=== PATIENT | female | born 1955 | race Caucasian/White ===

== ENCOUNTER → 2018-05-29 11:07 | Outpatient (CLI) | payer OTHER, SELFPAY ==
--- NOTE | 2018-05-29 | DI.MG.S_ITS ---
BILATERAL DIGITAL SCREENING MAMMOGRAM 3D/2D WITH CAD: 05/29/2018 CLINICAL: Routine screening. Comparison is made to exams dated: 03/13/2007 mammogram, 12/30/2005 mammogram, and 12/17/2005 mammogram - [facility]. There are scattered fibroglandular elements in both breasts. Current study was also evaluated with a Computer Aided Detection (CAD) system. No significant masses, calcifications, or other findings are seen in either breast. There has been no significant interval change. IMPRESSION: NEGATIVE There is no mammographic evidence of malignancy. A 1 year screening mammogram is recommended. This exam was interpreted at Station ID: [id number]. NOTE: For mammograms, a report in lay terms will be sent to the patient. Approximately 15% of breast malignancies will not be visualized mammographically. In the management of a palpable breast mass, a negative mammogram must not discourage biopsy of a clinically suspicious lesion. Electronically Signed By: Nanette perrin/antonella:05/29/2018 13:01:43 letter sent: Normal Exam ACR BI-RADS Category 1: Negative [id number]
== END ==
PROVIDERS: PCP Family Medicine; Visit Provider Family Medicine
DX: Z12.31 Encounter for screening mammogram for malignant neoplasm of breast (principal)
CPT/HCPCS: 77063; 77067

== ENCOUNTER → 2020-05-30 14:07 | Outpatient (CLI) | payer MEDICARE, SELFPAY | PROVIDERS: Referring Provider Student in an Organized Health Care Education/Training Program; Visit Provider Student in an Organized Health Care Education/Training Program | DX: M81.0 Age-related osteoporosis without current pathological fracture (principal); Z78.0 Asymptomatic menopausal state; Z87.891 Personal history of nicotine dependence | CPT/HCPCS: 77080 ==

== ENCOUNTER → 2020-09-14 11:19 | Outpatient (CLI) | payer MEDICARE, SELFPAY ==
[2020-09-14 11:58] LABS: COVID19 -Nasal RAPID Negative (Negative)
== END ==
PROVIDERS: PCP Student in an Organized Health Care Education/Training Program; Referring Provider Internal Medicine; Visit Provider Internal Medicine
DX: Z20.822 Contact with and (suspected) exposure to COVID-19 (principal)
CPT/HCPCS: 87635; C9803

== ENCOUNTER → 2020-09-15 14:44 | Outpatient (CLI) | payer MEDICARE, SELFPAY ==
--- NOTE | 2020-09-20 10:20 | PM.PFT.1 ---
Pulmonary Function Test Referral & Results Date Patient Seen: 09/15/20 Requesting provider: Xochitl Maynard Results: The spirometry demonstrates an FVC of 2.08 L which is 72% of predicted. The FEV1 was measured at 0.67 L which is 30% of predicted. The FEV1/FVC ratio was 32 which is 41% of predicted. Following the administration of bronchodilator there was no appreciable change. Lung volumes show an SVC of 2.18 L which is 80% of predicted. The diffusing capacity was measured at 10.37 which is 48% of predicted. No hemoglobin value was provided, so no correction for potential anemia could be made, if appropriate. The maximum voluntary ventilation was reduced Interpretation: This study demonstrates severe obstructive lung disease with an FEV1 of less than 1 L at 670 mL. There is only minimal evidence of benefit following bronchodilator that does not reach the level of significance usually required to demonstrate improvement There is also moderately severe disease at the capillary alveolar level as demonstrated by the reduction in diffusing capacity
== END ==
PROVIDERS: PCP Student in an Organized Health Care Education/Training Program; Referring Provider Student in an Organized Health Care Education/Training Program; Visit Provider Student in an Organized Health Care Education/Training Program
DX: J44.9 Chronic obstructive pulmonary disease, unspecified (principal)
CPT/HCPCS: 94060; 94726; 94729

== ENCOUNTER → 2020-10-12 12:14 | Outpatient (CLI) | payer MEDICARE, SELFPAY ==
[2020-10-12] MEDS: COVID-19 VACC #1, MRNA(MOD) 100 MCG/0.5 ML VIAL IM (12:25)
== END ==
PROVIDERS: PCP Student in an Organized Health Care Education/Training Program; Visit Provider Internal Medicine
DX: Z23 Encounter for immunization (principal)
CPT/HCPCS: 0011A; 91301

== ENCOUNTER → 2020-11-09 12:06 | Outpatient (CLI) | payer MEDICARE, SELFPAY ==
[2020-11-09] MEDS: COVID-19 VACC #2, MRNA(MOD) 100 MCG/0.5 ML VIAL IM (12:15)
== END ==
PROVIDERS: PCP Student in an Organized Health Care Education/Training Program; Visit Provider Internal Medicine
DX: Z23 Encounter for immunization (principal)
CPT/HCPCS: 0012A; 91301

== ENCOUNTER → 2021-04-30 11:39 | Outpatient (CLI) | payer MEDICARE, SELFPAY | PROVIDERS: PCP Student in an Organized Health Care Education/Training Program; Referring Provider Student in an Organized Health Care Education/Training Program; Visit Provider Student in an Organized Health Care Education/Training Program | DX: M81.0 Age-related osteoporosis without current pathological fracture (principal); Z78.0 Asymptomatic menopausal state; Z87.891 Personal history of nicotine dependence | CPT/HCPCS: 77080 ==

== ENCOUNTER 2021-08-03 12:02 | Inpatient (IN) | payer MEDICARE, SELFPAY ==
[2021-08-03] VITALS (22 sets, daily range): BP systolic 139–190; BP diastolic 59–91; PULSE 82–123; RESP 11–49; TEMP 36.1–36.6; O2SAT 81–99; BMI 21.5
--- NOTE | 2021-08-03 12:10 | DI.RAD.S_ITS ---
PROCEDURE: XR CHEST 1V INDICATIONS: chest pain TECHNIQUE: One view of the chest was acquired. COMPARISON: None. FINDINGS: Surgical changes and devices: None. Lungs and pleura: Lungs are clear. No pleural effusions or pneumothorax. Mediastinum: Mediastinal contours appear normal. Heart size is normal. Bones and chest wall: No suspicious bony lesions. Overlying soft tissues appear unremarkable. IMPRESSION: No acute cardiopulmonary disease process. Dictated by: Zakia Salter MD, PhD on 08/03/2021 at 12:33 Approved by: Zakia Salter MD, PhD on 08/03/2021 at 12:33
[2021-08-03 12:29] LABS: Add Manual Diff / Slide Review NO; Basophils Absolute Auto 100 /uL (0-100); Basophils Percent Auto 0.7 % (0-2); Eosinophils Absolute Auto 0 /uL (0-450); Eosinophils Percent Auto 0.4 % (2-4); Hemoglobin 12.9 g/dL (12.0-16.0); Lymphocytes Absolute Auto 1300 /uL (1100-4500); Lymphocytes Percent Auto 16.8 % (25-40); Mean Corpuscular HGB Conc 34.1 % (30-36); Mean Corpuscular Hemoglobin 30.5 PG (26-34); Mean Corpuscular Volume 89.6 fL (80-100); Monocytes Absolute Auto 600 /uL (0-900); Monocytes Percent Auto 7.6 % (3-14); Neutrophils Absolute Auto 5600 /uL (1500-7000); Neutrophils Percent Auto 74.5 % (50-75); Platelet Count 376 X10^3/uL (150-400); Red Blood Cell Count 4.24 X10^6/uL (4.0-5.2); Red Cell Distribution Width 14.1 % (11.6-14.8); White Blood Cell Count 7.5 X10^3/uL (4.5-11.0)
[2021-08-03 12:58] LABS: COVID19 -Nasal RAPID POSITIVE (Negative)
[2021-08-03 13:21] LABS: Alanine Aminotransferase 14 IU/L (<35); Albumin 4.3 g/dL (3.5-5.0); Albumin Globulin Ratio 1.5 (1.0-2.8); Alkaline Phosphatase 74 U/L (38-126); Aspartate Aminotransferase 20 IU/L (14-36); BUN Creatinine Ratio 19.7 (6-22); Bilirubin Total 0.6 mg/dL (0.2-1.3); Blood Urea Nitrogen 12 mg/dL (7-17); Calcium 9.8 mg/dL (8.4-10.2); Carbon Dioxide 29 mmol/L (22-32); Chloride 99 mmol/L (98-107); Creatine Kinase 26 U/L (30-135); Estimated Glomerular Filt Rate > 60.0 mL/min (>60); Globulin 2.8 g/dL (1.7-4.1); Glucose 118 mg/dL (80-110); HEMOLYSIS < 15 (0-50); Lipase 44 U/L (23-300); Magnesium 1.8 mg/dL (1.6-2.3); Potassium 4.4 mmol/L (3.4-5.1); Sodium 132 mmol/L (137-145); Total Protein 7.1 g/dL (6.3-8.2)
[2021-08-03 13:30] LABS: Troponin I < 0.012 ng/mL (0.01-0.034)
--- NOTE | 2021-08-03 13:45 | ED_ITS ---
HPI - Chest Pain General Chief Complaint: Chest Pain Stated Complaint: Tachycardia/SOB Time Seen by Provider: 08/03/21 12:13 Source: patient Mode of arrival: Wheelchair Limitations: no limitations History of Present Illness HPI narrative: Patient is a 66-year-old female history of COPD, hypertension presenting from her primary care provider's office concern for increasing shortness of breath and child cardiac. States that blood pressure with these has been put but difficult to control nose was in clinic for follow-up with change in hypertension medication. She was noted to be tachycardic in the office with heart rate of 158 and 130 EKG was done in the office there were some ST changes in she was sent here for further evaluation. She states that she has been noticing some increasing shortness of breath with exertion. She denies any fever or cough. She denies any orthopnea. No lower extremity edema a prior history of congestive heart failure. She actually did test positive for COVID here in the ER. She has not had any fever body aches or other symptoms. She is vaccinated. Related Data Home Medications Medication Instructions Recorded Confirmed atenolol 25 mg tablet 25 mg PO DAILY 08/03/21 08/03/21 terazosin 1 mg capsule 3 mg PO DAILY 08/03/21 08/03/21 Previous Rx's Medication Instructions Recorded albuterol sulfate 3 ml INH Q2HP PRN #100 vial 10/27/16 beclomethasone dipropionate 80 2 puff INH BID #1 inh 10/27/16 mcg/actuation aerosol inhaler (Qvar) losartan 50 mg tablet 50 mg PO BID #30 tab 10/27/16 tiotropium bromide 18 mcg capsule 18 mcg INH QDAY #1 inh 10/27/16 with inhalation device (Spiriva with HandiHaler) Allergies Allergy/AdvReac Type Severity Reaction Status Date / Time No Known Allergies Allergy Uncoded 10/01/17 12:59 Review of Systems Review of Systems Narrative: GENERAL: Denies chills, fatigue, malaise, fever, sweats, travel HEENT: Denies sinus pain, ear pain, sore throat, difficulty swallowing, neck pain RESPIRATORY: Shortness of breath, is see HPI CARDIOVASCULAR: Denies chest pain, palpitations, orthopnea, edema GASTROINTESTINAL: Denies nausea, vomiting, abdominal pain, diarrhea, constipation, melena. : Denies dysuria, frequency, incontinence, hematuria, urinary retention, flank pain. MUSCULOSKELETAL: Denies weakness, joint pain, or bony pain SKIN: No rash, no erythema, no pruritus NEUROLOGIC: Denies weakness, dizziness, headache, numbness, change in speech, confusion PSYCHIATRIC: No concerning psychosocial issues. 12 point review of systems is negative except for those stated above and HPI Patient History Medical History COPD (chronic obstructive pulmonary disease) Hypertension Tachycardia Social History household members: spouse Smoking Status: Former smoker alcohol intake: current Smoking Status: Former smoker alcohol intake frequency: 0-2 drinks per day Substance Use Type: does not use Exam Initial Vital Signs Initial Vital Signs: Vital Signs Pulse Rate 123 H 08/03/21 12:08 Blood Pressure 150/91 H 08/03/21 12:08 Pulse Oximetry 94 08/03/21 12:08 GENERAL: Alert well-appearing 58-year-old femaleand in no acute distress. HEENT: Head atraumatic,EOMI, pupils reactive, face symmetric, moist mucous membranes CARDIOVASCULAR: Regular rate and rhythm without murmurs, rubs or gallops. RESPIRATORY: Breath sounds equal bilaterally, no wheezes rales or rhonchi. ABDOMEN: Soft, nontender. Normoactive bowel sounds all 4 quadrants. No guarding or rebound. EXTREMITIES: Normal range of motion, no clubbing or edema. Neurovascularly intact NEUROLOGICAL: Alert and oriented x4.Normal gait and speech. SKIN: Warm, dry, no laceration, no petechiae, no rashes or lesions. Course Orders Ordered: ED Orders 08/03/21 12:10 XR chest 1V Stat EKG-12 Lead Stat 08/03/21 12:16 BNP [NT-proBNP (BNP-Adult 18+)] Stat Complete Blood Count AUTO DIFF Stat Comprehensive Metabolic Panel Stat D Dimer Stat Lipase Stat Magnesium Stat TSH w/ Reflex to FT4 Stat Troponin & CK Cardiac Panel Stat 08/03/21 12:35 COVID19 -Nasal swab/Pre-Proc Stat 08/03/21 14:14 CT angio chest PE protocol Stat Acetaminophen (Acetaminophen 325 Mg Tablet) 650 mg PO Q6HR PRN PRN Reason: Fever/Mild Pain (1-3) Albuterol (Albuterol 2.5 Mg/3 Ml Neb (Adult)) 2.5 mg INH Q2H PRN PRN Reason: wheezing, resp distress Budesonide (Budesonide 0.5 Mg/2 Ml Neb) 0.5 mg INH RTBID [facility] Dexamethasone (Dexamethasone 1 Mg Tablet) 6 mg PO DAILY [facility] Enoxaparin Sodium (Enoxaparin 40 Mg/0.4 Ml Syringe) 40 mg SUBCUT DAILY [facility] Remdesivir 100 mg/ Sodium (Chloride) 250 mls @ 250 mls/hr IV DAILY@1700 [facility] Stop: 08/07/21 17:59 Ipratropium Mil[place] (Ipratropium 0.5 Mg/2.5 Ml Neb) 0.5 mg INH Q4HRWA [facility] Ipratropium Milmay (Ipratropium 0.5 Mg/2.5 Ml Neb) 0.5 mg INH Q2H PRN PRN Reason: Shortness Of Breath Losartan Potassium (Losartan 50 Mg Tablet) 50 mg PO BID [facility] Naloxone HCl (Naloxone 0.4 Mg/Ml Vial) 0.2 mg IV Q2MIN PRN PRN Reason: Opiate Reversal Ondansetron HCl (Ondansetron 4 Mg/2 Ml Inj) 4 mg IV Q8HR PRN PRN Reason: Nausea And Vomiting Pantoprazole Sodium (Pantoprazole Dr 20 Mg Tablet) 20 mg PO 1700 [facility] Last Admin: 08/03/21 17:44 Dose: 20 mg Documented by: FIDENCIO Terazosin HCl (Terazosin 1 Mg Capsule) 3 mg PO BEDTIME [facility] Discontinued Medications Dexamethasone (Dexamethasone 10 Mg/Ml Vial) 6 mg IV NOW ONE Stop: 08/03/21 15:36 Last Admin: 08/03/21 16:01 Dose: 6 mg Documented by: HAILEY Remdesivir 200 mg/ Sodium (Chloride) 250 mls @ 250 mls/hr IV NOW ONE Stop: 08/03/21 17:52 Last Admin: 08/03/21 17:44 Dose: 250 mls/hr Documented by: FIDENCIO Vital Signs Vital signs: Vital Signs - 8 hr 08/03/21 12:08 08/03/21 12:10 08/03/21 12:15 Temperature 97.0 F L Pulse Rate 123 H 109 H 106 H Respiratory Rate 20 24 Blood Pressure 150/91 H 150/91 H Pulse Oximetry 94 99 96 08/03/21 12:30 08/03/21 12:35 08/03/21 12:45 Temperature Pulse Rate 95 H 93 H 85 Respiratory Rate 22 23 11 L Blood Pressure 159/74 H 162/65 H Pulse Oximetry 97 97 97 08/03/21 13:00 08/03/21 13:15 08/03/21 13:30 Temperature Pulse Rate 83 87 87 Respiratory Rate 13 21 24 Blood Pressure 139/65 153/72 H 156/70 H Pulse Oximetry 96 08/03/21 13:45 08/03/21 14:00 08/03/21 14:15 Temperature Pulse Rate 86 89 109 H Respiratory Rate 31 H 22 15 Blood Pressure 169/77 H 158/59 H 155/73 H Pulse Oximetry 96 97 08/03/21 14:35 08/03/21 14:45 08/03/21 15:00 Temperature Pulse Rate 97 H 91 H 93 H Respiratory Rate 29 H 32 H 49 H Blood Pressure Pulse Oximetry 81 L 98 97 08/03/21 15:15 08/03/21 15:30 08/03/21 15:45 Temperature Pulse Rate 94 H 83 82 Respiratory Rate 20 37 H 44 H Blood Pressure Pulse Oximetry 98 97 97 MDM - Chest Pain Lab Data Result diagrams: 08/03/21 12:16 08/03/21 12:16 Labs: Lab Results 08/03/21 08/03/21 08/03/21 Range/Units 12:16 12:16 12:16 WBC 7.5 (4.5-11.0) X10^3/uL RBC 4.24 (4.0-5.2) X10^6/uL Hgb 12.9 (12.0-16.0) g/dL Hct 38.0 (36-46) % MCV 89.6 (80-100) fL MCH 30.5 (26-34) PG MCHC 34.1 (30-36) % RDW 14.1 (11.6-14.8) % Plt Count 376 (150-400) X10^3/uL Neut % (Auto) 74.5 (50-75) % Lymph % (Auto) 16.8 L (25-40) % [place] % (Auto) 7.6 (3-14) % Eos % (Auto) 0.4 L (2-4) % Baso % (Auto) 0.7 (0-2) % Neut # (Auto) 5600 (0977-0608) /uL Lymph # (Auto) 1300 (3115-2829) /uL [place] # (Auto) 600 (0-900) /uL Eos # (Auto) 0 (0-450) /uL Baso # (Auto) 100 (0-100) /uL D-Dimer (<230) ng/mL Sodium 132 L (137-145) mmol/L Potassium 4.4 (3.4-5.1) mmol/L Chloride 99 (98-107) mmol/L Carbon Dioxide 29 (22-32) mmol/L BUN 12 (7-17) mg/dL Creatinine 0.61 (0.52-1.04) mg/dL Estimated GFR > 60.0 (>60) mL/min BUN/Creatinine Ratio 19.7 (6-22) Glucose 118 H (80-110) mg/dL Calcium 9.8 (8.4-10.2) mg/dL Magnesium 1.8 (1.6-2.3) mg/dL Total Bilirubin 0.6 (0.2-1.3) mg/dL AST 20 (14-36) IU/L ALT 14 (<35) IU/L Alkaline Phosphatase 74 (38-126) U/L Total Creatine Kinase 26 L (30-135) U/L CK-MB (CK-2) TNP CK-MB (CK-2) Rel Index TNP Troponin I < 0.012 (0.01-0.034) ng/mL NT-Pro-B Natriuret Pep (<125) pg/mL Total Protein 7.1 (6.3-8.2) g/dL Albumin 4.3 (3.5-5.0) g/dL Globulin 2.8 (1.7-4.1) g/dL Albumin/Globulin Ratio 1.5 (1.0-2.8) Lipase 44 (23-300) U/L TSH 1.60 (0.47-4.68) uIU/mL SARS-CoV-2 (PCR) (Negative) 08/03/21 08/03/21 08/03/21 Range/Units 12:16 12:16 12:35 WBC (4.5-11.0) X10^3/uL RBC (4.0-5.2) X10^6/uL Hgb (12.0-16.0) g/dL Hct (36-46) % MCV (80-100) fL MCH (26-34) PG MCHC (30-36) % RDW (11.6-14.8) % Plt Count (150-400) X10^3/uL Neut % (Auto) (50-75) % Lymph % (Auto) (25-40) % [place] % (Auto) (3-14) % Eos % (Auto) (2-4) % Baso % (Auto) (0-2) % Neut # (Auto) (3305-6801) /uL Lymph # (Auto) (1249-1687) /uL [place] # (Auto) (0-900) /uL Eos # (Auto) (0-450) /uL Baso # (Auto) (0-100) /uL D-Dimer < 200 (<230) ng/mL Sodium (137-145) mmol/L Potassium (3.4-5.1) mmol/L Chloride (98-107) mmol/L Carbon Dioxide (22-32) mmol/L BUN (7-17) mg/dL Creatinine (0.52-1.04) mg/dL Estimated GFR (>60) mL/min BUN/Creatinine Ratio (6-22) Glucose (80-110) mg/dL Calcium (8.4-10.2) mg/dL Magnesium (1.6-2.3) mg/dL Total Bilirubin (0.2-1.3) mg/dL AST (14-36) IU/L ALT (<35) IU/L Alkaline Phosphatase (38-126) U/L Total Creatine Kinase (30-135) U/L CK-MB (CK-2) CK-MB (CK-2) Rel Index Troponin I (0.01-0.034) ng/mL NT-Pro-B Natriuret Pep 104 (<125) pg/mL Total Protein (6.3-8.2) g/dL Albumin (3.5-5.0) g/dL Globulin (1.7-4.1) g/dL Albumin/Globulin Ratio (1.0-2.8) Lipase (23-300) U/L TSH (0.47-4.68) uIU/mL SARS-CoV-2 (PCR) Positive H (Negative) Imaging Data Chest x-ray: Radiologist's Impression: PROCEDURE:? XR CHEST 1V ? INDICATIONS:? chest pain ? TECHNIQUE:? One view of the chest was acquired.? ? COMPARISON:? None. ? FINDINGS:? ? Surgical changes and devices:? None.? ? Lungs and pleura:? Lungs are clear.? No pleural effusions or pneumothorax.? ? Mediastinum:? Mediastinal contours appear normal.? Heart size is normal.? ? Bones and chest wall:? No suspicious bony lesions.? Overlying soft tissues appear unremarkable.? ? IMPRESSION:? No acute cardiopulmonary disease process. ? ? Dictated by: Zakia Salter MD, PhD on 08/03/2021 at 12:33 ? ? Approved by: Zakia Salter MD, PhD on 08/03/2021 at 12:33 ? CT scan - chest: Radiologist's Impression: PROCEDURE:? CT ANGIO CHEST PE PROTOCOL ? INDICATIONS:? hypoxic with covid ? TECHNIQUE:? After the administration of intravenous contrast, 2 mm thick sections acquired from the pulmonary apices to the posterior costophrenic angles.? 3-dimensional maximum intensity projection (MIP) coronal and sagittal reformats were then acquired through the thorax.? For radiation dose reduction, the following was used:? automated exposure control, adjustment of mA and/or kV according to patient size.? ? COMPARISON:? None. ? FINDINGS:? Image quality:? Excellent.? ? Pulmonary arteries:? Pulmonary arteries are normal in size, and demonstrate no intraluminal filling defects to suggest central pulmonary embolism.? ? Lungs and pleura:? [id number] emphysematous changes are noted in bilateral lung grigsby.? Scattered atelectasis in periphery of bilateral lung grigsby are seen.? No acute airspace opacities.? No pleural effusions or pneumothorax.? Central and peripheral airways are patent.? ? Mediastinum:? Heart size is normal, without pericardial effusion.? No mediastinal or hilar adenopathy.? Thoracic aorta is normal in caliber and enhancement.? Esophagus is normal in caliber, without hiatal hernia.? ? Bones and chest wall:? No suspicious bony lesions.? No vertebral body compression fractures.? Degenerative endplate changes are noted throughout thoracic spine.? Thyroid gland is within normal limits.? No axillary or supraclavicular adenopathy.? ? Abdomen:? Visualized upper abdominal solid organs appear normal in the early arterial phase of enhancement.? ? IMPRESSION:? 1. No pulmonary emboli.? No thoracic aortic aneurysm or dissection. 2.? Mild to moderate COPD.? No focal infiltrate, pleural effusion or pneumothorax. 3. No mediastinal or hilar lymphadenopathy.? ? ? Dictated by: Deepak Vásquez M.D. on 08/03/2021 at 14:55 ECG Data Interpretation: Normal sinus rhythm rate 102 WI interval 124 QRS [address] changes, similar to previous EKG in 2017 EKG done office was sent to a difficult to read due to poor quality no obvious changes some artifact was noted on the month MDM Narrative Medical decision making narrative: Patient is not tachycardic or hypoxic well sitting, D-dimer is negative. However upon ambulation O2 sat drops to 90% heart rate increases to 130. CT angio was done despite negative D-dimer to rule out pulmonary embolism no abnormality was found. She is COVID positive color with exertional hypoxia and tachycardia and history of COPD. Risk for decompensating. She is given dexamethasone to treat both COPD and COVID was not given remdesivir not actually requiring oxygen at rest. BNP was also negative unlikely to be congestive heart failure. Discharge Plan Departure Patient Disposition: Admitted As Inpatient Clinical Impression: COVID-19 Admit Date/Time: 08/03/21 16:00 Admit Provider: Xochitl Maynard
[2021-08-03 13:47] LABS: D Dimer < 200 ng/mL (<230)
--- NOTE | 2021-08-03 14:14 | DI.CT.S_ITS ---
PROCEDURE: CT ANGIO CHEST PE PROTOCOL INDICATIONS: hypoxic with covid TECHNIQUE: After the administration of intravenous contrast, 2 mm thick sections acquired from the pulmonary apices to the posterior costophrenic angles. 3-dimensional maximum intensity projection (MIP) coronal and sagittal reformats were then acquired through the thorax. For radiation dose reduction, the following was used: automated exposure control, adjustment of mA and/or kV according to patient size. COMPARISON: None. FINDINGS: Image quality: Excellent. Pulmonary arteries: Pulmonary arteries are normal in size, and demonstrate no intraluminal filling defects to suggest central pulmonary embolism. Lungs and pleura: [id number] emphysematous changes are noted in bilateral lung grigsby. Scattered atelectasis in periphery of bilateral lung grigsby are seen. No acute airspace opacities. No pleural effusions or pneumothorax. Central and peripheral airways are patent. Mediastinum: Heart size is normal, without pericardial effusion. No mediastinal or hilar adenopathy. Thoracic aorta is normal in caliber and enhancement. Esophagus is normal in caliber, without hiatal hernia. Bones and chest wall: No suspicious bony lesions. No vertebral body compression fractures. Degenerative endplate changes are noted throughout thoracic spine. Thyroid gland is within normal limits. No axillary or supraclavicular adenopathy. Abdomen: Visualized upper abdominal solid organs appear normal in the early arterial phase of enhancement. IMPRESSION: 1. No pulmonary emboli. No thoracic aortic aneurysm or dissection. 2. Mild to moderate COPD. No focal infiltrate, pleural effusion or pneumothorax. 3. No mediastinal or hilar lymphadenopathy. Dictated by: Deepak Vásquez M.D. on 08/03/2021 at 14:55 Approved by: Deepak Vásquez M.D. on 08/03/2021 at 15:00
[2021-08-03 14:22] LABS: NT-proBNP (BNP-Adult 18+) 104 pg/mL (<125)
[2021-08-03] MEDS: DEXAMETHASONE 10 MG/ML VIAL 6 MG IV (16:01)
--- NOTE | 2021-08-03 16:16 | PC.NURSE ---
Day shift: Pt on AC unit from ED at approx 1616. She is room room and walking around w/ no s/s of distress. Using BR at this time. Placed on tele. Denies any chest pain. VS WNL and RA 97%. No MD orders at this time.
--- NOTE | 2021-08-03 16:41 | PM.HP.1 ---
History of Present Illness History of Present Illness Date Patient Seen: 08/03/21 Time Patient Seen: 17:07 Chief complaint: Tachycardia/SOB Narrative: 66-year-old female is admitted from the ED secondary to COVID. She was seen in the clinic today for follow-up hypertension and was noted to be tachycardiac into the 150s. EKG showed sinus tachycardia with a VR of [address] changes and she was sent to the ED for further evaluation and treatment. Vital signs upon admission included temperature of 97?, pulse 123, blood pressure 150/91, O2 saturation 94%, and variable respirations depending on exertion between 11 and 49. With any amount of activity, she desaturated into the 80s and became tachycardic. Labs fairly unremarkable except for a sodium of 132, baseline for patient. CT angiogram showed [id number] COPD with no infiltrate or pleural effusions. Patient is in the middle of titrating her antihypertensives. She was recently discontinued from hydrochlorothiazide secondary to hyponatremia. She has been unable to tolerate amlodipine due to peripheral edema. She had a brief trial of atenolol that exacerbated her COPD. Currently, she is on her longstanding losartan 50 mg p.o. b.i.d. and just started hytrin 3 mg p.o. q.h.s. two days ago. She is tolerating the hytrin without any side effects. She is otherwise without chest pain, cough, headache, nausea, or vomiting. No known sick contacts. She is vaccinated x 2 and boosted against COVID. 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 Education: 12 Patient History Family & Social History Social History: household members spouse Prior Living Arrangements House Safety & Behavioral: Feels Safe in Current Yes Environment Been Physically Hurt or No Threatened By a Person Suicidal Ideation Description None Suicide Plan Description No Plan Tobacco & Substance use: Tobacco type cigarettes Smoking Status Former smoker alcohol intake current alcohol intake frequency 0-2 drinks per day Substance Use Type does not use Meds Home Medications and Allergies Home Medications Medication Instructions Recorded Confirmed Type albuterol sulfate 3 ml INH Q2HP PRN #100 vial 10/27/16 08/03/21 Rx beclomethasone dipropionate 80 2 puff INH BID #1 inh 10/27/16 08/03/21 Rx mcg/actuation aerosol inhaler (Qvar) losartan 50 mg tablet 50 mg PO BID #30 tab 10/27/16 08/03/21 Rx tiotropium bromide 18 mcg capsule 18 mcg INH QDAY #1 inh 10/27/16 08/03/21 Rx with inhalation device (Spiriva with HandiHaler) atenolol 25 mg tablet 25 mg PO DAILY 08/03/21 08/03/21 History terazosin 1 mg capsule 3 mg PO DAILY 08/03/21 08/03/21 History Allergies Allergy/AdvReac Type Severity Reaction Status Date / Time No Known Allergies Allergy Uncoded 10/01/17 12:59 Review of Systems Review of Systems Narrative: All remaining ROS were reviewed and negative except as addressed. Exam Vital Signs (past 8 hours): - 08/03/21 12:08 08/03/21 12:10 08/03/21 12:15 Temperature 97.0 F L Pulse Rate 123 H 109 H 106 H Respiratory Rate 20 24 Blood Pressure 150/91 H 150/91 H Pulse Oximetry 94 99 96 08/03/21 12:30 08/03/21 12:35 08/03/21 12:45 Temperature Pulse Rate 95 H 93 H 85 Respiratory Rate 22 23 11 L Blood Pressure 159/74 H 162/65 H Pulse Oximetry 97 97 97 08/03/21 13:00 08/03/21 13:15 08/03/21 13:30 Temperature Pulse Rate 83 87 87 Respiratory Rate 13 21 24 Blood Pressure 139/65 153/72 H 156/70 H Pulse Oximetry 96 08/03/21 13:45 08/03/21 14:00 08/03/21 14:15 Temperature Pulse Rate 86 89 109 H Respiratory Rate 31 H 22 15 Blood Pressure 169/77 H 158/59 H 155/73 H Pulse Oximetry 96 97 08/03/21 14:35 08/03/21 14:45 08/03/21 15:00 Temperature Pulse Rate 97 H 91 H 93 H Respiratory Rate 29 H 32 H 49 H Blood Pressure Pulse Oximetry 81 L 98 97 08/03/21 15:15 08/03/21 15:30 08/03/21 15:45 Temperature Pulse Rate 94 H 83 82 Respiratory Rate 20 37 H 44 H Blood Pressure Pulse Oximetry 98 97 97 Oxygen Delivery Method Room Air Narrative Exam Narrative: GENERAL: Alert and oriented, appearing stated age and in no acute distress. HEENT: Head normocephalic/atraumatic. Extraocular movements intact. LUNGS: Clear to auscultation with poor inspiratory effort. No audible wheezes, rhonchi, or rales. CV: Normal S1 and S2 with tachycardic rate and regular rhythm, no audible murmurs, rubs or gallops. ABDOMEN: Soft, non-tender, non-distended, no organomegaly. Positive bowel sounds. EXTREMITIES: No clubbing, cyanosis, or edema. NEURO: Cranial nerves II through XII grossly intact, no focal deficits. PSYCH: Alert and oriented x 3. SKIN: No concerning lesions. Objective Labs Result Diagrams: 08/03/21 12:16 08/03/21 12:16 Labs: Laboratory Results - last 24 hr 08/03/21 08/03/21 08/03/21 12:16 12:16 12:16 WBC 7.5 RBC 4.24 Hgb 12.9 Hct 38.0 MCV 89.6 MCH 30.5 MCHC 34.1 RDW 14.1 Plt Count 376 Neut % (Auto) 74.5 Lymph % (Auto) 16.8 L [place] % (Auto) 7.6 Eos % (Auto) 0.4 L Baso % (Auto) 0.7 Neut # (Auto) 5600 Lymph # (Auto) 1300 [place] # (Auto) 600 Eos # (Auto) 0 Baso # (Auto) 100 D-Dimer Sodium 132 L Potassium 4.4 Chloride 99 Carbon Dioxide 29 BUN 12 Creatinine 0.61 Estimated GFR > 60.0 BUN/Creatinine Ratio 19.7 Glucose 118 H Calcium 9.8 Magnesium 1.8 Total Bilirubin 0.6 AST 20 ALT 14 Alkaline Phosphatase 74 Total Creatine Kinase 26 L CK-MB (CK-2) TNP CK-MB (CK-2) Rel Index TNP Troponin I < 0.012 NT-Pro-B Natriuret Pep Total Protein 7.1 Albumin 4.3 Globulin 2.8 Albumin/Globulin Ratio 1.5 Lipase 44 TSH 1.60 SARS-CoV-2 (PCR) 08/03/21 08/03/21 08/03/21 12:16 12:16 12:35 WBC RBC Hgb Hct MCV MCH MCHC RDW Plt Count Neut % (Auto) Lymph % (Auto) [place] % (Auto) Eos % (Auto) Baso % (Auto) Neut # (Auto) Lymph # (Auto) [place] # (Auto) Eos # (Auto) Baso # (Auto) D-Dimer < 200 Sodium Potassium Chloride Carbon Dioxide BUN Creatinine Estimated GFR BUN/Creatinine Ratio Glucose Calcium Magnesium Total Bilirubin AST ALT Alkaline Phosphatase Total Creatine Kinase CK-MB (CK-2) CK-MB (CK-2) Rel Index Troponin I NT-Pro-B Natriuret Pep 104 Total Protein Albumin Globulin Albumin/Globulin Ratio Lipase TSH SARS-CoV-2 (PCR) Positive H Assessment & Plan Assessment & Plan narrative: 1. COVID Plan: At this point, patient is not in respiratory distress but likely secondary to her underlying lung disease, cannot handle any sort of exertion and becomes tachycardic and hypoxic. Will monitor with telemetry and provide supplemental oxygen as needed. Dexamethasone and remdesivir per routine. Anticipate discharge as soon as patient is able to stabilize her vital signs. 2. Acute hypoxic respiratory failure Plan: Please see #1. 3. COPD Plan: Continue usual home medications. RT consult. 4. Hypertension, uncontrolled Plan: Actively titrating patient's antihypertensives. Has been intolerant to several agents due to side effects. May need a total of 4-5 mg of Hytrin for good control. Will continue losartan 50 mg p.o. BID. 5. GERD, chronic Plan: continue usual Protonix. CODE: full COVID: positive FEN: Cardiac diet, hep-lock GI: protonix DVT: lovenox Dispo: Anticipate 1-2 nights. COVID-19 COVID-19 status: Positive Result date/Date tested (Pos, Neg/Pending): 08/03/21 Quality VTE Deep Vein Thrombosis/Pulmonary Embolism Present on Admission: No
[2021-08-03] MEDS: PANTOPRAZOLE DR 20 MG TABLET PO (17:44)
[2021-08-03] MEDS: REMDESIVIR 200 MG in SODIUM CHLORIDE 0.9% 210 ML 250 ML IV (17:44)
[2021-08-03] MEDS: SODIUM CHLORIDE 0.9% FLUSH 10 ML IV (19:35)
[2021-08-03] MEDS: BUDESONIDE 0.5 MG/2 ML NEB INH (19:48)
[2021-08-03] MEDS: IPRATROPIUM 0.5 MG/2.5 ML NEB INH (19:50)
[2021-08-03] MEDS: LOSARTAN 50 MG TABLET PO (21:10)
[2021-08-03] MEDS: TERAZOSIN 1 MG CAPSULE 3 MG PO (21:11)
[2021-08-04] VITALS (12 sets, daily range): BP systolic 115–147; BP diastolic 62–94; PULSE 88–120; RESP 16–24; TEMP 36.4–36.8; O2SAT 94–98
[2021-08-04 06:58] LABS: BUN Creatinine Ratio 22.4 (6-22); Blood Urea Nitrogen 11 mg/dL (7-17); Calcium 9.8 mg/dL (8.4-10.2); Carbon Dioxide 29 mmol/L (22-32); Chloride 102 mmol/L (98-107); Estimated Glomerular Filt Rate > 60.0 mL/min (>60); Glucose 106 mg/dL (80-110); HEMOLYSIS < 15 (0-50); Potassium 4.3 mmol/L (3.4-5.1); Sodium 133 mmol/L (137-145)
[2021-08-04] MEDS: ENOXAPARIN 40 MG/0.4 ML SYRINGE SUBCUT (09:25)
[2021-08-04] MEDS: SODIUM CHLORIDE 0.9% FLUSH 10 ML IV ×2 (09:25→21:15)
[2021-08-04] MEDS: LOSARTAN 50 MG TABLET PO ×2 (09:25→21:14)
[2021-08-04] MEDS: dexAMETHasone 1 MG TABLET 6 MG PO (09:25)
[2021-08-04] MEDS: BUDESONIDE 0.5 MG/2 ML NEB INH ×2 (09:28→21:45)
[2021-08-04] MEDS: IPRATROPIUM 0.5 MG/2.5 ML NEB INH ×3 (09:28→21:45)
--- NOTE | 2021-08-04 09:40 | P.PN_ITS ---
Subjective Subjective Date Patient Seen: 08/04/21 Time Patient Seen: 09:40 Interval history: Patient seen and evaluated this morning. Discussed care with nurse. No major concerns. Tachycardic all the time worse with activity. Hypoxic with activity. Resting not requiring oxygen patient has a good appetite. She says she was not really where she has had COVID other than going to [employer] in to the doctor's office she has not been anywhere. She did feel though she was coming down with a mild exacerbation of underlying COPD with increasing shortness of breath and her blood pressure has been high. She has good appetite. She likes to walk she says. Exam Vital Signs (past 8 hours): - 08/04/21 05:00 08/04/21 06:33 08/04/21 09:05 Temperature 98.2 F 98.1 F Pulse Rate 105 H 90 120 H Respiratory Rate 20 20 Blood Pressure 144/88 H 147/79 H Pulse Oximetry 96 95 Oxygen Delivery Method Room Air Oxygen Flow Rate 0 Narrative Exam Narrative: Gen.: Alert and oriented x3 no apparent distress. HEENT: Pupils equal round and reactive Cardio: [S1-S2 regular rate and rhythm no murmurs appreciated tachycardia Respiratory: Lungs are clear to auscultation no wheezes or crackles normal respiratory effort. Abdomen: Soft nontender Extremities: Full range of motion Neurologic: Grossly intact. Objective Labs Result Diagrams: 08/03/21 12:16 08/04/21 06:35 Labs: Laboratory Results - last 24 hr 08/03/21 08/03/21 08/03/21 12:16 12:16 12:16 WBC 7.5 RBC 4.24 Hgb 12.9 Hct 38.0 MCV 89.6 MCH 30.5 MCHC 34.1 RDW 14.1 Plt Count 376 Neut % (Auto) 74.5 Lymph % (Auto) 16.8 L [place] % (Auto) 7.6 Eos % (Auto) 0.4 L Baso % (Auto) 0.7 Neut # (Auto) 5600 Lymph # (Auto) 1300 [place] # (Auto) 600 Eos # (Auto) 0 Baso # (Auto) 100 D-Dimer Sodium 132 L Potassium 4.4 Chloride 99 Carbon Dioxide 29 BUN 12 Creatinine 0.61 Estimated GFR > 60.0 BUN/Creatinine Ratio 19.7 Glucose 118 H Calcium 9.8 Magnesium 1.8 Total Bilirubin 0.6 AST 20 ALT 14 Alkaline Phosphatase 74 Total Creatine Kinase 26 L CK-MB (CK-2) TNP CK-MB (CK-2) Rel Index TNP Troponin I < 0.012 NT-Pro-B Natriuret Pep Total Protein 7.1 Albumin 4.3 Globulin 2.8 Albumin/Globulin Ratio 1.5 Lipase 44 TSH 1.60 SARS-CoV-2 (PCR) 08/03/21 08/03/21 08/03/21 12:16 12:16 12:35 WBC RBC Hgb Hct MCV MCH MCHC RDW Plt Count Neut % (Auto) Lymph % (Auto) [place] % (Auto) Eos % (Auto) Baso % (Auto) Neut # (Auto) Lymph # (Auto) [place] # (Auto) Eos # (Auto) Baso # (Auto) D-Dimer < 200 Sodium Potassium Chloride Carbon Dioxide BUN Creatinine Estimated GFR BUN/Creatinine Ratio Glucose Calcium Magnesium Total Bilirubin AST ALT Alkaline Phosphatase Total Creatine Kinase CK-MB (CK-2) CK-MB (CK-2) Rel Index Troponin I NT-Pro-B Natriuret Pep 104 Total Protein Albumin Globulin Albumin/Globulin Ratio Lipase TSH SARS-CoV-2 (PCR) Positive H 08/04/21 06:35 WBC RBC Hgb Hct MCV MCH MCHC RDW Plt Count Neut % (Auto) Lymph % (Auto) [place] % (Auto) Eos % (Auto) Baso % (Auto) Neut # (Auto) Lymph # (Auto) [place] # (Auto) Eos # (Auto) Baso # (Auto) D-Dimer Sodium 133 L Potassium 4.3 Chloride 102 Carbon Dioxide 29 BUN 11 Creatinine 0.49 L Estimated GFR > 60.0 BUN/Creatinine Ratio 22.4 H Glucose 106 Calcium 9.8 Magnesium Total Bilirubin AST ALT Alkaline Phosphatase Total Creatine Kinase CK-MB (CK-2) CK-MB (CK-2) Rel Index Troponin I NT-Pro-B Natriuret Pep Total Protein Albumin Globulin Albumin/Globulin Ratio Lipase TSH SARS-CoV-2 (PCR) [facility] Medical History COPD (chronic obstructive pulmonary disease) Hypertension Tachycardia Social History household members: spouse Smoking Status: Former smoker alcohol intake: current Assessment & Plan Assessment and plan (1) COPD (chronic obstructive pulmonary disease): Status: Acute (2) Hypertension: Status: Acute (3) COVID-19: Status: Acute (4) Tachycardia: Status: Acute Plan Acute hypoxic respiratory failure due to COVID. On steroids remdesivir. Not requiring oxygen at this point. Unsure where she is in the COVID course whether this is the beginning or middle. Patient is fully vaccinated and boost heard. She has underlying chronic lung disease with COPD. At high risk. Will continue with steroids remdesivir. I oxygen status is stable this morning although tachycardic. She gets hypoxic with ambulation. COVID pneumonia. Continue with remdesivir and dexamethasone Chronic COPD with mild acute exacerbation. Continue with IV steroids have not placed her on antibiotics. She is on her home nebulizer therapy in oxygen as needed. Hypertension uncontrolled. Patient is on losartan 50 mg twice a day discussed with previous physician about blood pressure medication trials. She was started on Hytrin blood pressure is a little bit better still tachycardic. She did not tolerate amlodipine will go ahead and try Cardizem 120 mg once daily for blood pressure and tachycardia. GERD continue with Protonix Code status full code continue with DVT prophylaxis. Things go well with blood pressure management and no worsening of COVID symptoms anticipate discharge tomorrow Time Spent With Patient Critical Care time: I spent a total of [] minutes of critical care time on this patient's care today; this time is exclusive of procedural time. Quality VTE Deep Vein Thrombosis/Pulmonary Embolism Present on Admission: No
[2021-08-04] MEDS: dilTIAZem CD 120 MG CAP PO (10:27)
--- NOTE | 2021-08-04 10:57 | CM.DANOTE ---
DCP: Case received, EMR reviewed and called patient on her phone. Introduced self and role. Was able to obtain information regarding patient's baseline activity status prior to hospitalization. DCP assessment completed with information currently available. Patient is a 66 year old female who admitted yesterday afternoon to the care of the hospitalist rizwana. PCP: Dr. Maynard. Payer: confirmed: [employer] [facility]. Patient came to the hospital via private vehicle secondary to having increased tachycardia and HTN, sent over from her primary care provider. Patient is also positive for COVID, was vaccinated, and has history of COPD. She is not currently on oxygen, but vitals are still unstable. Spoke to patient on the phone. She is alert and oriented, pleasant. Dr. Paz had already been in her room and seen her. She is independent at her baseline, and resides here in [place] with her spouse, Derrick. P: DCP to continue to follow. Patient should be able to go home when she is deemed medically stable. Kaci Ruby RN/manager drive Discharge Planning/Care Management CM Discharge Assessment Start: 08/04/21 10:55 Freq: Status: Active Protocol: Document 08/04/21 10:55 (Rec: 08/04/21 10:57 [id number]) Discharge Planning Assessment Assigned Filter Tender Jelly Kaci Ruby RN/Videogame Designer Advance Directives? No History Provided By Patient,Medical Record Prior Living Arrangements House Household Members spouse Type of transporation used prior to Drives own vehicle admit Independent with ADL's Yes Is patient alert and oriented? Yes Caregiver for Another No Discharge Plan Home Transportation Arrangement Spouse Referrals Initiated None needed Whiteboard Updated in Patient Room with No name and ext. # of Filter Tender Jelly Comment Patient is positive for COVID Review Status In Process Next Review Type Continued Stay Review
--- NOTE | 2021-08-04 12:44 | PC.NURSE ---
pt reports her SOB improved. HR 85. O2 86-88% RA while ambulating and recovers quickly to 90's at rest.
[2021-08-04] MEDS: REMDESIVIR 100 MG in SODIUM CHLORIDE 0.9% 230 ML 250 ML IV (17:09)
[2021-08-04] MEDS: PANTOPRAZOLE DR 20 MG TABLET PO (17:13)
[2021-08-04 17:30] LABS: Add Manual Diff / Slide Review NO; Basophils Absolute Auto 0 /uL (0-100); Basophils Percent Auto 0.1 % (0-2); Eosinophils Absolute Auto 0 /uL (0-450); Hematocrit 39.3 % (36-46); Hemoglobin 13.4 g/dL (12.0-16.0); Lymphocytes Absolute Auto 600 /uL (1100-4500); Lymphocytes Percent Auto 5.8 % (25-40); Mean Corpuscular HGB Conc 33.9 % (30-36); Mean Corpuscular Hemoglobin 30.2 PG (26-34); Mean Corpuscular Volume 89.1 fL (80-100); Monocytes Absolute Auto 200 /uL (0-900); Monocytes Percent Auto 1.7 % (3-14); Neutrophils Absolute Auto 9600 /uL (1500-7000); Neutrophils Percent Auto 92.4 % (50-75); Platelet Count 347 X10^3/uL (150-400); Red Blood Cell Count 4.41 X10^6/uL (4.0-5.2); Red Cell Distribution Width 14.1 % (11.6-14.8); White Blood Cell Count 10.4 X10^3/uL (4.5-11.0)
[2021-08-04] MEDS: TERAZOSIN 1 MG CAPSULE 3 MG PO (21:15)
[2021-08-04] MEDS: ALBUTEROL 2.5 MG/3 ML NEB (ADULT) INH (21:45)
[2021-08-05 00:04] VITALS: PULSE 86; RESP 16; O2SAT 96
--- NOTE | 2021-08-05 04:39 | PC.NURSE ---
Shift Note Patient appears comfortable, denies any pain/discomfort, still slightly dyspneic upon exertion, maintained at room air with O2 sat >92% during the shift. Afebrile, vital signs within acceptable limits. No signs of cardiorespiratory distress noted. Will continue to monitor.
[2021-08-05 05:53] VITALS: BP 147/75; PULSE 93; RESP 16; TEMP 37.3; O2SAT 92
[2021-08-05 06:11] LABS: BUN Creatinine Ratio 31.3 (6-22); Blood Urea Nitrogen 15 mg/dL (7-17); Calcium 9.4 mg/dL (8.4-10.2); Carbon Dioxide 28 mmol/L (22-32); Chloride 104 mmol/L (98-107); Estimated Glomerular Filt Rate > 60.0 mL/min (>60); Glucose 98 mg/dL (80-110); HEMOLYSIS < 15 (0-50); Potassium 4.2 mmol/L (3.4-5.1); Sodium 134 mmol/L (137-145)
[2021-08-05 09:00] VITALS: BP 143/78; PULSE 81; RESP 16; TEMP 36.6; O2SAT 94
--- NOTE | 2021-08-05 09:18 | PM.DS.1 ---
History of Present Illness History of Present Illness Chief complaint: Tachycardia/SOB Discharge Providers Provider Date of admission: 08/03/21 16:00 Discharge Date: 08/05/21 Primary care physician: Xochitl Maynard MD Consults: 08/03/21 16:48 Consult to Discharge Planning Routine Comment: 08/03/21 17:32 Consult to Respiratory Therapy Evaluate & Treat Comment: Physician Instructions: Evaluate and treat Discharge provider: Gabriel Paz MD Summary Hospital Course Discharge Diagnosis: COVID-19 with acute respiratory failure Chronic COPD Hypertensive emergency Tachycardia GERD Hospital Course: Patient was admitted to the hospital with elevated blood pressure respiratory distress low oxygen and increased work of breathing. Patient has a history of COPD. During evaluation patient was quite tachycardic and hypoxic. There was concerns for COPD exacerbation versus COVID pneumonia. Patient tested positive for COVID. She was admitted to the hospital for further workup and evaluation. Patient had been placed on steroids and remdesivir per COVID protocol. Over the ensuing 24 hours her respiratory status stabilized and improved. She had no further significant decline of her oxygen status. She was placed on her home nebulizer and inhaler treatments with steroids. Patient showed improvement. Patient had management of her blood pressure. With the addition of an alpha-essie and Cardizem in the morning. Once these were started her blood pressure and pulse were much improved and stabilized for the following 24 hours. At the time of discharge was eating and ambulating well. Her blood pressure medication will be Cozaar twice a day Hytrin at night and Cardizem 120 mg in the morning. Exam Vital Signs (past 8 hours): - 08/05/21 05:53 08/05/21 09:00 Temperature 99.2 F 98 F Pulse Rate 93 H 81 Respiratory Rate 16 16 Blood Pressure 147/75 H 143/78 H Pulse Oximetry 92 94 Oxygen Delivery Method Room Air Oxygen Flow Rate 0 Objective Labs Result Diagrams: 08/04/21 17:10 08/05/21 05:38 Labs: Laboratory Results - last 24 hr 08/04/21 08/05/21 17:10 05:38 WBC 10.4 RBC 4.41 Hgb 13.4 Hct 39.3 MCV 89.1 MCH 30.2 MCHC 33.9 RDW 14.1 Plt Count 347 Neut % (Auto) 92.4 H Lymph % (Auto) 5.8 L [place] % (Auto) 1.7 L Eos % (Auto) 0.0 L Baso % (Auto) 0.1 Neut # (Auto) 9600 H Lymph # (Auto) 600 L [place] # (Auto) 200 Eos # (Auto) 0 Baso # (Auto) 0 Sodium 134 L Potassium 4.2 Chloride 104 Carbon Dioxide 28 BUN 15 Creatinine 0.48 L Estimated GFR > 60.0 BUN/Creatinine Ratio 31.3 H Glucose 98 Calcium 9.4 PFSH Medical History COPD (chronic obstructive pulmonary disease) Hypertension Tachycardia Social History household members: spouse Smoking Status: Former smoker alcohol intake: current Discharge Plan Discharge Plan Patient Disposition: Home Provider Discharge Comment: home f/u Dr Maynard in 7 days Discharge orders & Medications Prescriptions: New pantoprazole 20 mg Tablet,Delayed Release (Dr/Ec) 20 mg PO DAILY@1700 Qty: 30 0RF diltiazem HCl 120 mg Capsule,Extended Release 24hr 120 mg PO DAILY Qty: 30 0RF prednisone 20 mg tablet 20 mg PO DAILY Qty: 5 0RF Continued albuterol sulfate 2.5 MG/3 ML solution for nebulization 3 ml INH Q2HP PRNQty: 100 2RF losartan 50 MG tablet 50 mg PO BID Qty: 30 2RF Qvar 80 MCG/PUFF aerosol 2 puff INH BID Qty: 1 0RF Spiriva with HandiHaler 18 MCG capsule, w/inhalation device 18 mcg INH QDAY Qty: 1 2RF terazosin 1 mg capsule 3 mg PO DAILY 0RF Label Comments: take 3 capsules by mouth once daily Discontinued atenolol 25 mg tablet 25 mg PO DAILY 0RF Label Comments: take 1 tablet by mouth once daily Follow up/Referrals: Xochitl Maynard MD [Primary Care Provider] - Discharge Health Status Health Concerns: Patient needs to return if shortness of breath. Patient needs to isolate due to COVID positive for 7 days. If worsening symptoms of fever chills cough shortness of breath due to COVID return to emergency room. Visit Report/Discharge Packet Visit Report Forms: Patient Portal/API, Stroke Signs & Symptoms Discharge Data Primary Care Provider: Xochitl Maynard Quality VTE Deep Vein Thrombosis/Pulmonary Embolism Present on Admission: No
[2021-08-05] MEDS: BUDESONIDE 0.5 MG/2 ML NEB INH (09:21)
[2021-08-05] MEDS: IPRATROPIUM 0.5 MG/2.5 ML NEB INH (09:21)
[2021-08-05 09:25] VITALS: O2SAT 94
[2021-08-05] MEDS: LOSARTAN 50 MG TABLET PO (09:58)
[2021-08-05] MEDS: dexAMETHasone 4 MG TABLET 6 MG PO (09:58)
[2021-08-05] MEDS: dilTIAZem CD 120 MG CAP PO (09:58)
[2021-08-05] MEDS: ENOXAPARIN 40 MG/0.4 ML SYRINGE SUBCUT (09:59)
[2021-08-05] MEDS: SODIUM CHLORIDE 0.9% FLUSH 10 ML IV (09:59)
--- NOTE | 2021-08-05 12:51 | PC.NURSE ---
Discharged by provider. Education provided. Pt verbalized understanding of all d/c teaching. Tachycardia noted. Pt verbalized she will monitor her HR and O2 sats, advised when to seek medical care. Pt escorted out via w/c to private vehicle. Pt left in stable condition with all personal belongings.
== END 2021-08-05 12:46 | disposition home or self-care (01) | DRG 177 ==
LOC: ED 12:40 → AC 16:00
PROVIDERS: Admitting Provider Student in an Organized Health Care Education/Training Program; Emergency Provider Emergency Medicine; PCP Student in an Organized Health Care Education/Training Program; Referring Provider Emergency Medicine; Visit Provider Student in an Organized Health Care Education/Training Program
DX: U07.1 COVID-19 (principal); J12.82 Pneumonia due to coronavirus disease 2019; J96.01 Acute respiratory failure with hypoxia; J44.9 Chronic obstructive pulmonary disease, unspecified; I10 Essential (primary) hypertension; R00.0 Tachycardia, unspecified; K21.9 Gastro-esophageal reflux disease without esophagitis; Z87.891 Personal history of nicotine dependence
CPT/HCPCS: 36415; 71045; 71275; 80048; 80053; 82550; 83690; 83735; 83880; 84443; 84484; 85025; 85379; 87635; 93005; 93010; 94640; 94760; 94762; 96374; 99232; 99238; 99284; C9803; J1100; J1650; J7613; Q9967

== ENCOUNTER 2021-08-12 14:22 | Emergency (ER) | payer MEDICARE, SELFPAY ==
[2021-08-03 16:27] VITALS: BMI 21.5
[2021-08-12 14:30] VITALS: BP 146/86; PULSE 121; RESP 18; TEMP 36.6; O2SAT 96
[2021-08-12 15:05] VITALS: PULSE 92; O2SAT 95
[2021-08-12 15:06] VITALS: BP 131/59; PULSE 91; RESP 18; O2SAT 95
--- NOTE | 2021-08-12 15:24 | ED_ITS ---
HPI - Recheck/Abnormal Lab/Rx <Kelsea Driscoll [facility] - Last Filed: 08/12/21 19:58> General Chief Complaint: Recheck/Abnormal Lab/Rx Stated Complaint: low blood pressure Time Seen by Provider: 08/12/21 14:44 Source: patient Mode of arrival: Ambulatory History of Present Illness HPI narrative: 66-year-old female with history of COPD, recently diagnosed with sinus tachycardia on diltiazem, recent COVID-19 illness on 08/03/21 when patient was admitted to the hospital with elevated blood pressure, respiratory distress, low oxygen, and increased work of breathing. She was tachycardic and hypoxic a time, there are concerns for COPD exacerbation versus COVID pneumonia. She tested positive for COVID and discharged on 08/05/2021. She was placed on steroids and remdesivir per COVID protocol. Patient states that she has improved from that standpoint and she has been checking her blood pressure at home and noticing that sometimes it lower than her norm and she was concerned about 87/50 and 89/60 at home and was told to go to hospital of her blood pressure is below 90/60. Patient states that she has been taking losartan 50 mg b.i.d. for a long time, she was recently put on diltiazem 120 mg daily, I assume this is for rate control, she was also started on terazosin since her hospitalization which I assume is for difficult to control hypertension. Patient states that she has numbness and tingling in her fingers sometimes, she feels lightheaded, she has not have blood pressure low like this in the past. It is Friday and a holiday weekend so she is unable to follow-up with her primary -Dr. Maynard. Patient is no longer taking atenolol daily. Patient denies any syncope, chest pain, shortness of breath, endorses orthostatic dizziness. She states that she is drinking plenty water. Related Data Home Medications Medication Instructions Recorded Confirmed terazosin 1 mg capsule 3 mg PO DAILY 08/03/21 08/03/21 Previous Rx's Medication Instructions Recorded albuterol sulfate 3 ml INH Q2HP PRN #100 vial 10/27/16 beclomethasone dipropionate 80 2 puff INH BID #1 inh 10/27/16 mcg/actuation aerosol inhaler (Qvar) losartan 50 mg tablet 50 mg PO BID #30 tab 10/27/16 tiotropium bromide 18 mcg capsule 18 mcg INH QDAY #1 inh 10/27/16 with inhalation device (Spiriva with HandiHaler) diltiazem HCl 120 mg 120 mg PO DAILY #30 cap 08/05/21 capsule,extended release 24 hr pantoprazole 20 mg tablet,delayed 20 mg PO DAILY@1700 #30 tab 08/05/21 release prednisone 20 mg tablet 20 mg PO DAILY #5 tab 08/05/21 Allergies Allergy/AdvReac Type Severity Reaction Status Date / Time No Known Allergies Allergy Uncoded 10/01/17 12:59 Review of Systems <AMEENA Ron - Last Filed: 08/12/21 19:58> Review of Systems Narrative: General: denies fever, chills, malaise, sweats, fatigue Head/Neck: denies headache, neck pain, dizziness Eyes: denies visual changes, eye pain Cardio: denies chest pain, palpitations, edema Respiratory: denies dyspnea, cough, orthopnea GI: denies abdominal pain, nausea, vomiting, or diarrhea : denies dysuria, hematuria, urinary retention, frequency or incontinence MSK: denies joint pain, muscle weakness Skin: denies rash, itching, skin lesions or other Neuro: denies numbness, tingling Patient History <AMEENA Ron - Last Filed: 08/12/21 19:58> Medical History COPD (chronic obstructive pulmonary disease) Hypertension Tachycardia Social History household members: spouse Smoking Status: Former smoker alcohol intake: current Smoking Status: Former smoker alcohol intake frequency: 0-2 drinks per day Substance Use Type: does not use Exam <AMEENA Ron - Last Filed: 08/12/21 19:58> Narrative Exam Narrative: Independently reviewed vitals signs and nursing notes. General: Cooperative, comfortable, in no acute distress, well developed and well groomed Head/Neck: Normal visual inspection and supple, atraumatic, no JVD or lym phadenopathy. Normal facial exam Eyes: Pupils equal round and reactive, EOMI, conjunctiva normal, no scleral icterus or injections Nose: External nose normal, nares patent, no rhinorrhea, without purulent drainage Mouth/Throat: uvula midline, moist mucus membranes Cardio: Sinus rhythm, heart rate 91, S1-S2 without additional sounds, no peripheral edema, warm extremities Respiratory: Normal respiratory effort, able to speak in complete sentences without audible wheezing, stridor, or rales. No retractions. GI: Abdomen soft, nontender to palpation x4 quadrants, nondistended, no masses or exquisite tenderness with exam, no flank tenderness MSK: Moves all extremities, neurovascularly intact Skin: Normal capillary refill, no rash Neuro: Normal speech and cognition, normal gait, A&O x3, tone normal, moves all extremities Psych: Mental status is grossly normal, speech is clear, congruent mood, normal affect Initial Vital Signs Initial Vital Signs: Vital Signs Temperature 97.8 F 08/12/21 14:30 Pulse Rate 121 H 08/12/21 14:30 Respiratory Rate 18 08/12/21 14:30 Blood Pressure 146/86 H 08/12/21 14:30 Pulse Oximetry 96 08/12/21 14:30 <Miriam Elder DO - Last Filed: 08/18/21 08:15> Initial Vital Signs Initial Vital Signs: Vital Signs Temperature 97.8 F 08/12/21 14:30 Pulse Rate 121 H 08/12/21 14:30 Respiratory Rate 18 08/12/21 14:30 Blood Pressure 146/86 H 08/12/21 14:30 Pulse Oximetry 96 08/12/21 14:30 Course <AMEENA Ron - Last Filed: 08/12/21 19:58> Orders Ordered: ED Orders 08/12/21 14:35 EKG-12 Lead Stat 08/12/21 15:53 CMP [Comprehensive Metabolic Panel] Stat Magnesium Stat Troponin & CK Cardiac Panel Stat 08/12/21 16:25 CBC Auto Diff [Complete Blood Count AUTO DIFF] Stat Vital Signs Vital signs: Vital Signs - 8 hr 08/12/21 14:30 08/12/21 15:05 08/12/21 15:06 Temperature 97.8 F Pulse Rate 121 H 92 H 91 H Respiratory Rate 18 18 Blood Pressure 146/86 H 131/59 L Pulse Oximetry 96 95 95 08/12/21 15:30 08/12/21 16:00 02/20/22 16:30 Temperature Pulse Rate 91 H 95 H 82 Respiratory Rate 17 18 Blood Pressure 137/63 137/60 Pulse Oximetry 96 94 97 <Miriam Elder DO - Last Filed: 08/18/21 08:15> Orders Ordered: ED Orders 08/12/21 14:35 EKG-12 Lead Stat 08/12/21 15:53 CMP [Comprehensive Metabolic Panel] Stat Magnesium Stat Troponin & CK Cardiac Panel Stat 08/12/21 16:25 CBC Auto Diff [Complete Blood Count AUTO DIFF] Stat Vital Signs Vital signs: Vital Signs - 8 hr 08/12/21 14:30 08/12/21 15:05 08/12/21 15:06 Temperature 97.8 F Pulse Rate 121 H 92 H 91 H Respiratory Rate 18 18 Blood Pressure 146/86 H 131/59 L Pulse Oximetry 96 95 95 08/12/21 15:30 08/12/21 16:00 08/12/21 16:30 Temperature Pulse Rate 91 H 95 H 82 Respiratory Rate 17 18 Blood Pressure 137/63 137/60 Pulse Oximetry 96 94 97 MDM - Recheck/Abnormal Lab/Rx <PERLA RonP - Last Filed: 08/12/21 19:58> Lab Data Result diagrams: 08/12/21 16:25 08/12/21 15:53 Labs: Lab Results 08/12/21 08/12/21 Range/Units 15:53 16:25 WBC 10.9 (4.5-11.0) X10^3/uL RBC 4.23 (4.0-5.2) X10^6/uL Hgb 12.9 (12.0-16.0) g/dL Hct 37.9 (36-46) % MCV 89.6 (80-100) fL MCH 30.4 (26-34) PG MCHC 33.9 (30-36) % RDW 14.3 (11.6-14.8) % Plt Count 371 (150-400) X10^3/uL Neut % (Auto) 82.5 H (50-75) % Lymph % (Auto) 8.9 L (25-40) % [place] % (Auto) 7.8 (3-14) % Eos % (Auto) 0.5 L (2-4) % Baso % (Auto) 0.3 (0-2) % Neut # (Auto) 9000 H (4292-8084) /uL Lymph # (Auto) 1000 L (5280-5267) /uL [place] # (Auto) 900 (0-900) /uL Eos # (Auto) 100 (0-450) /uL Baso # (Auto) 0 (0-100) /uL Sodium 127 L (137-145) mmol/L Potassium 4.0 (3.4-5.1) mmol/L Chloride 98 (98-107) mmol/L Carbon Dioxide 26 (22-32) mmol/L BUN 15 (7-17) mg/dL Creatinine 0.66 (0.52-1.04) mg/dL Estimated GFR > 60.0 (>60) mL/min BUN/Creatinine Ratio 22.7 H (6-22) Glucose 110 (80-110) mg/dL Calcium 9.4 (8.4-10.2) mg/dL Magnesium 2.0 (1.6-2.3) mg/dL Total Bilirubin 0.6 (0.2-1.3) mg/dL AST 17 (14-36) IU/L ALT 18 (<35) IU/L Alkaline Phosphatase 67 (38-126) U/L Total Creatine Kinase < 20 L (30-135) U/L CK-MB (CK-2) TNP CK-MB (CK-2) Rel Index TNP Troponin I < 0.012 (0.01-0.034) ng/mL Total Protein 6.5 (6.3-8.2) g/dL Albumin 3.9 (3.5-5.0) g/dL Globulin 2.6 (1.7-4.1) g/dL Albumin/Globulin Ratio 1.5 (1.0-2.8) MDM Narrative Medical decision making narrative: 66-year-old female with past medical history including COPD, sinus tachycardia, hypertension, recent COVID pneumonia and COVID illness on to 112 who presents to the emergency department with hypotension below her normal low after starting to new antihypertensive following discharge from the hospital on 08/05/2021. Patient completed a course of prednisone and remdesivir for COVID infection while she was in inpatient with hypoxia, she is no longer hypoxic, and her symptoms from COVID have improved. She has had 2 blood pressures at home with a systolic of 87 and another systolic of 89 which she says is too low for her. She has been on losartan 50 mg b.i.d. for a long time, she was recently started on a diltiazem 120 mg daily for rate control, and started on terazosin 3 mg daily for difficult to control hypertension. She has symptoms associated with her hypertension including numbness and tingling in her hands, lightheadedness, near syncope sensation. After discussion with patient, opted to decrease her terazosin down to 1 mg daily/holding if low BP and continue checking her blood pressure at least twice a day. She understands to follow-up with her primary care provider about this after the holiday weekend. Patient was found to have hyponatremia below her baseline of 130s to 127. Checked her medications for cau ses of hyponatremia and there is no associated adverse effect of diltiazem, losartan, or terazosin with hyponatremia. Patient is most likely symptomatic from her pressure below baseline related to the terazosin dosing. Recommend patient follow-up with her primary care provider after the weekend and have her sodium checked again while eating a diet with salt. Patient is appropriate and amenable to discharge home. Vital signs are stable on repeat examination is unremarkable. Patient has been informed of results. Patient has been given strict return to ER precautions for any new or worsening symptoms. Patient understands to follow up closely with outpatient providers as instructed. Reyna ent understands plan and agrees to discharge home. All questions and concerns answered at this time. <Miriam Elder, DO - Last Filed: 08/18/21 08:15> Lab Data Labs: Lab Results 08/12/21 08/12/21 Range/Units 15:53 16:25 WBC 10.9 (4.5-11.0) X10^3/uL RBC 4.23 (4.0-5.2) X10^6/uL Hgb 12.9 (12.0-16.0) g/dL Hct 37.9 (36-46) % MCV 89.6 (80-100) fL MCH 30.4 (26-34) PG MCHC 33.9 (30-36) % RDW 14.3 (11.6-14.8) % Plt Count 371 (150-400) X10^3/uL Neut % (Auto) 82.5 H (50-75) % Lymph % (Auto) 8.9 L (25-40) % [place] % (Auto) 7.8 (3-14) % Eos % (Auto) 0.5 L (2-4) % Baso % (Auto) 0.3 (0-2) % Neut # (Auto) 9000 H (4972-2669) /uL Lymph # (Auto) 1000 L (3132-7239) /uL [place] # (Auto) 900 (0-900) /uL Eos # (Auto) 100 (0-450) /uL Baso # (Auto) 0 (0-100) /uL Sodium 127 L (137-145) mmol/L Potassium 4.0 (3.4-5.1) mmol/L Chloride 98 (98-107) mmol/L Carbon Dioxide 26 (22-32) mmol/L BUN 15 (7-17) mg/dL Creatinine 0.66 (0.52-1.04) mg/dL Estimated GFR > 60.0 (>60) mL/min BUN/Creatinine Ratio 22.7 H (6-22) Glucose 110 (80-110) mg/dL Calcium 9.4 (8.4-10.2) mg/dL Magnesium 2.0 (1.6-2.3) mg/dL Total Bilirubin 0.6 (0.2-1.3) mg/dL AST 17 (14-36) IU/L ALT 18 (<35) IU/L Alkaline Phosphatase 67 (38-126) U/L Total Creatine Kinase < 20 L (30-135) U/L CK-MB (CK-2) TNP CK-MB (CK-2) Rel Index TNP Troponin I < 0.012 (0.01-0.034) ng/mL Total Protein 6.5 (6.3-8.2) g/dL Albumin 3.9 (3.5-5.0) g/dL Globulin 2.6 (1.7-4.1) g/dL Albumin/Globulin Ratio 1.5 (1.0-2.8) Discharge Plan Departure Patient Disposition: Home Clinical Impression: Acute hyponatremia, Hypotension due to medication Activity Restrictions/Additional Instructions: *You have been diagnosed with an over-correction of your high blood pressure to a level below your normal, and hyponatremia which is a low-salt level. Please eat a diet that has salt in it, and try to have something with salt in it for every meal, please stay hydrated with electrolyte containing liquids and water. Please do not drink too much water without any electrolytes like salt. Please follow-up with your primary care provider after this weekend and have your sodium level recheck it as well as address your blood pressure medications. Please decrease her terazosin down to 1 mg daily and check her blood pressure at least twice a day for the next week. If you have any low blood pressures below 90/60, please hold the terazosin. If your blood pressure is above 160/90 you may take 2 mg daily and continue to check your blood pressure. This is a very strong medication any may have a large effect from only 1 mg of a change. Your lab work otherwise looks great, no signs of infection, your kidney function looked great as did your other electrolytes. He did not have any signs of cardiac stress either. Thank you for trusting us with your care, I hope you feel better tomorrow. *What to do: *Please continue to take your regular medications as directed. [ ] New medication prescriptions sent to your pharmacy: [ ] [ ] New medication written as a paper prescription [x ] No new medications given *Please follow up with your primary care provider in 2-3 days, call for an appointment. Let them know you were seen in the Emergency Department and that we ask that you be seen in follow up. We will electronically transmit a record of today's note if your PCP is in our system *If you do not have a primary care provider please contact the [facility] Resource line at [phone]. They will ask some questions about your medical history and help get you set up with a doctor in the community. *Return to Emergency Department if you should have any new, worsening or concerning symptoms, such as [fever greater than 101F, chills, worsening pain, persistent vomiting or other bothersome symptoms] Prescriptions: No Action albuterol sulfate 2.5 MG/3 ML solution for nebulization 3 ml INH Q2HP PRNQty: 100 2RF losartan 50 MG tablet 50 mg PO BID Qty: 30 2RF Qvar 80 MCG/PUFF aerosol 2 puff INH BID Qty: 1 0RF Spiriva with HandiHaler 18 MCG capsule, w/inhalation device 18 mcg INH QDAY Qty: 1 2RF terazosin 1 mg capsule 3 mg PO DAILY 0RF Label Comments: take 3 capsules by mouth once daily pantoprazole 20 mg Tablet,Delayed Release (Dr/Ec) 20 mg PO DAILY@1700 Qty: 30 0RF diltiazem HCl 120 mg Capsule,Extended Release 24hr 120 mg PO DAILY Qty: 30 0RF prednisone 20 mg tablet 20 mg PO DAILY Qty: 5 0RF Referrals: Xochitl Maynard MD [Primary Care Provider] - <Miriam Elder DO - Last Filed: 08/18/21 08:15> Cosign ED Attending Cosignature Attestation: I was immediately available in the department for consultation. Documentation has been reviewed.
[2021-08-12 15:30] VITALS: BP 137/63; PULSE 91; RESP 17; O2SAT 96
[2021-08-12 16:00] VITALS: PULSE 95; RESP 18; O2SAT 94
[2021-08-12 16:19] LABS: Alanine Aminotransferase 18 IU/L (<35); Albumin 3.9 g/dL (3.5-5.0); Albumin Globulin Ratio 1.5 (1.0-2.8); Alkaline Phosphatase 67 U/L (38-126); Aspartate Aminotransferase 17 IU/L (14-36); BUN Creatinine Ratio 22.7 (6-22); Bilirubin Total 0.6 mg/dL (0.2-1.3); Blood Urea Nitrogen 15 mg/dL (7-17); Calcium 9.4 mg/dL (8.4-10.2); Carbon Dioxide 26 mmol/L (22-32); Chloride 98 mmol/L (98-107); Creatine Kinase < 20 U/L (30-135); Estimated Glomerular Filt Rate > 60.0 mL/min (>60); Globulin 2.6 g/dL (1.7-4.1); Glucose 110 mg/dL (80-110); HEMOLYSIS < 15 (0-50); Sodium 127 mmol/L (137-145); Total Protein 6.5 g/dL (6.3-8.2)
[2021-08-12 16:30] VITALS: BP 137/60; PULSE 82; O2SAT 97
[2021-08-12 16:30] LABS: Troponin I < 0.012 ng/mL (0.01-0.034)
[2021-08-12 16:34] LABS: Add Manual Diff / Slide Review NO; Basophils Absolute Auto 0 /uL (0-100); Basophils Percent Auto 0.3 % (0-2); Eosinophils Absolute Auto 100 /uL (0-450); Eosinophils Percent Auto 0.5 % (2-4); Hematocrit 37.9 % (36-46); Hemoglobin 12.9 g/dL (12.0-16.0); Lymphocytes Absolute Auto 1000 /uL (1100-4500); Lymphocytes Percent Auto 8.9 % (25-40); Mean Corpuscular HGB Conc 33.9 % (30-36); Mean Corpuscular Hemoglobin 30.4 PG (26-34); Mean Corpuscular Volume 89.6 fL (80-100); Monocytes Absolute Auto 900 /uL (0-900); Monocytes Percent Auto 7.8 % (3-14); Neutrophils Absolute Auto 9000 /uL (1500-7000); Neutrophils Percent Auto 82.5 % (50-75); Platelet Count 371 X10^3/uL (150-400); Red Blood Cell Count 4.23 X10^6/uL (4.0-5.2); Red Cell Distribution Width 14.3 % (11.6-14.8); White Blood Cell Count 10.9 X10^3/uL (4.5-11.0)
== END 2021-08-12 16:49 | disposition home or self-care (01) ==
PROVIDERS: Emergency Provider Nurse Practitioner Critical Care Medicine; PCP Student in an Organized Health Care Education/Training Program
DX: E87.1 Hypo-osmolality and hyponatremia (principal); I95.2 Hypotension due to drugs; T44.6X5A Adverse effect of alpha-adrenoreceptor antagonists, initial encounter
CPT/HCPCS: 80053; 82550; 83735; 84484; 85025; 93005; 99283

== ENCOUNTER → 2022-02-26 07:49 | Outpatient (CLI) | payer MEDICARE, SELFPAY ==
[2021-08-03 16:27] VITALS: BMI 21.5
--- NOTE | 2022-02-26 | DI.ECHO.S_ITS ---
[facility]---------+ [facility] +---------+ : : [address] : : : : [id number] : : : : Phone: [phone]---------+ Echocardiogram Report + + :Name: YUMI SCHROEDER Study Date: 02/26/2022 Height: 62 in : :[facility] ReadingLocation: Weight: 110 lb : : Gender: Female BSA: 1.5 m2 : :: 1955 Age: 66 yrs BP: 199/106 mmHg: :Reason For Study: Tachycardia : :Ordering Physician: NIKITA, : :ARBEN Performed By: Bhanu Duong : :Referring: ARBEN TAMEZ : + + Interpretation Summary 1) Normal left ventricular thickness, size, wall motion, and systolic function (EF 55-60%). 2) Normal right ventricular size and function. 3) No significant valvular abnormalities. 4) Hypertension present during the study (BP 199/106mmHg). 5) No prior Echo available for comparison. Procedure: A two-dimensional transthoracic echocardiogram with color flow and Doppler was performed. The study quality was technically adequate. There is no prior echocardiogram noted for this patient. The patient was in normal sinus rhythm during the exam. Left Ventricle: The left ventricle is normal in size and wall thickness. Left ventricular systolic function is normal. The ejection fraction is estimated to be 55-60%. There are no focal wall motion abnormalities. Diastolic parameters suggest probable normal left ventricular diastolic function and normal filling pressures. Right Ventricle: The right ventricle is normal in size and function. Atria: Both atria are normal in size. The interatrial septum grossly appears intact with no obvious evidence for an atrial septal defect. Mitral Valve: The mitral valve is normal in structure and function. There is trace mitral regurgitation. Aortic Valve: There is discrete nodular thickening of the non- coronary cusp. There is no aortic valve stenosis. No aortic regurgitation is present. Tricuspid Valve: The tricuspid valve is normal in structure and function. There is mild tricuspid regurgitation. The right ventricular systolic pressure is estimated to be at least 23 mmHg based on an estimated right atrial pressure of 3 mm Hg. Pulmonic Valve: The pulmonic valve is normal in structure and function. There is no pulmonic valvular regurgitation. Great Vessels: The aortic root is normal size. The dimensions of the ascending aorta are normal. The IVC is of normal diameter and collapses greater than 50% with a sniff. This suggests a low right atrial pressure of 3 mm Hg. Pericardium/ Pleura There is no pericardial effusion. There is no pleural effusion. MMode/2D Measurements & Calculations LVIDd: 4.2 cm LVOT diam: 2.0 cm LVIDs: 2.8 cm Ao root diam: 3.1 cm FS: 33.3 % asc Aorta Diam: 3.2 cm IVSd: 1.0 cm LVPWd: 1.0 cm LV walker. diameter/BSA (cm/m^2): 2.8 LV sys. diameter/BSA (cm/m^2): 1.9 LA dimension: 2.5 cm RA long axis: 3.7 cm LA A2 area: 10.9 cm2 LA A4 area: 10.8 cm2 LA length (vol): 4.2 cm LA vol: 24.0 ml LA vol index: 16.2 ml/m2 TAPSE_phl: 1.7 cm Doppler Measurements & Calculations Ao V2 max: 109.0 cm/sec LVOT Max Hayden: 99.2 cm/sec Ao V2 mean: 78.0 cm/sec LV V1 max P.9 mmHg Ao max P.0 mmHg LV V1 VTI: 19.8 cm Ao mean P.0 mmHg SARAH(I,D): 2.9 cm2 Ao V2 VTI: 21.8 cm SARAH(V,D): 2.9 cm2 sev ratio: 0.91 SARAH indexed to BSA (cm^2/m^2): 1.9 MV E max hayden: 57.8 cm/sec TR max hayden: 223.0 cm/sec MV A max hayden: 97.3 cm/sec TR max P.9 mmHg MV E/A: 0.59 Med Peak E' Hayden: 5.8 cm/sec E/E' med: 10.0 Lat Peak E' Hayden: 6.8 cm/sec E/E' lat: 8.5 E/e' average: 9.3 MV dec time: 0.22 sec SV(LVOT): 62.2 ml AV VR_phl: 0.91 SARAH(VTI)/BSA_phl: 1.9 MV P1/2t-pr_phl: 64.0 msec Reading Physician:09:29 AM
== END ==
PROVIDERS: PCP Student in an Organized Health Care Education/Training Program; Referring Provider Internal Medicine Cardiovascular Disease; Visit Provider Internal Medicine Cardiovascular Disease
DX: R00.0 Tachycardia, unspecified (principal)
CPT/HCPCS: 93306

== ENCOUNTER → 2022-03-19 10:49 | Outpatient (CLI) | payer MEDICARE, SELFPAY ==
[2021-08-03 16:27] VITALS: BMI 21.5
[2022-03-19 11:46] LABS: Cholesterol 177 mg/dL (140-199); HDL Cholesterol 73 mg/dL (40-60); LDL Cholesterol Calculated 93 mg/dL (<100); Triglycerides 57 mg/dL (35-150)
== END ==
PROVIDERS: PCP Student in an Organized Health Care Education/Training Program; Referring Provider Internal Medicine Cardiovascular Disease; Visit Provider Internal Medicine Cardiovascular Disease
DX: E78.5 Hyperlipidemia, unspecified (principal)
CPT/HCPCS: 36415; 80061

== ENCOUNTER → 2023-05-13 12:38 | Outpatient (CLI) | payer MEDICARE, SELFPAY ==
[2021-08-03 16:27] VITALS: BMI 21.5
--- NOTE | 2023-05-13 | DI.RAD.S_ITS ---
Bone Density Report Name: YUMI SCHROEDER Age: 67 Sex: Female Ethnicity: White Date of : 1955 Indication: postmenopausal osteoporosis; Referring Provider: BENNETT LEY Study: Bone densitometry was performed. Exam Date: May 13, 2023 Accession number: [id number] Bone Density: Region BMD T-score Z-score Classification AP Spine(L1-L4) 0.643 -3.7 -1.6 Osteoporosis Femoral Neck (Left) 0.483 -3.3 -1.5 Osteoporosis Total Hip (Left) 0.581 -3.0 -1.5 Osteoporosis Femoral Neck (Right) 0.480 -3.3 -1.5 Osteoporosis Total Hip (Right) 0.536 -3.3 -1.8 Osteoporosis Total Hip Mean 0.559 -3.2 -1.7 Osteoporosis World Health Organization criteria for BMD impression classify patients as: Normal (T-score at or above -1.0), Osteopenia (T-score between -1.0 and -2.5), or Osteoporosis (T-score at or below -2.5). 10-year Fracture Risk: FRAX not reported because: Some T-score for Spine Total or Hip Total or Femoral Neck at or below -2.5 Previous Exams: -- Region Exam Age BMD T-score BMD Change BMD Change Date g/cm2 vs Baseline vs Previous -- AP Spine (L1-L4) 05/13/2023 67 0.643 -3.7 -0.125 (-16.3%)# -0.060 (-8.5%)# 04/30/2021 65 0.703 -3.1 -0.066 (-8.5%)* 0.032 (4.7%)* 05/30/2020 64 0.671 -3.4 -0.097 (-12.7%)* -0.097 (-12.7%)* 12/20/2005 50 0.768 -2.5 Total Hip(Left) 05/13/2023 67 0.581 -3.0 -0.201 (-25.6%)# 0.007 (1.2%)# 04/30/2021 65 0.574 -3.0 -0.208 (-26.6%)* 0.021 (3.7%) 05/30/2020 64 0.554 -3.2 -0.228 (-29.2%)* -0.228 (-29.2%)* 12/20/2005 50 0.782 -1.3 Total Hip(Right) 05/13/2023 67 0.536 -3.3 -0.210 (-28.2%)# -0.009 (-1.6%)# 04/30/2021 65 0.545 -3.3 -0.201 (-27.0%)* 0.023 (4.4%) 05/30/2020 64 0.522 -3.4 -0.224 (-30.0%)* -0.224 (-30.0%)* 12/20/2005 50 0.746 -1.6 -- *Denotes significance at 95% confidence level, LSC for AP Spine = 0.022 g/cm2, LSC for Total Hip = 0.027 g/cm2 # Denotes dissimilar scan types or analysis methods Impression: The patient has osteoporosis, based on the Total Spine T-score. No significant bone loss was observed. Discussion: INCREASED RISK OF FRACTURE. BONE DENSITY IS UNDESIRABLY LOW AT ONE OR MORE SKELETAL SITES, CONSISTENT WITH POSTMENOPAUSAL OSTEOPOROSIS. This patient's lowest T-score meets the World Health Organization's (WHO) criteria for osteoporosis at one or more sites (T-score -2.5 or below). In untreated patients, the risk of osteoporotic fracture increases approximately two-fold for each 1.0 SD decrease in T-score. Low bone density is not the only risk factor for fracture; also consider factors such as patient's age, frailty or poor health, risk of falling, risk of injury, previous osteoporotic fracture, family history of osteoporosis, cigarette smoking, low body weight, etc. Not everyone with low bone mineral density has osteoporosis; osteomalacia and other metabolic bone disorders should also be considered. Patients who have osteoporosis should be evaluated for specific diseases and conditions (secondary causes) that may cause or contribute to bone loss. The [place] Association [employer] Clinical Endocrinologists (AACE) and National Osteoporosis Foundation (NOF) recommend pharmacologic intervention for all postmenopausal women whose T-score is in this range. The patient should follow a healthful lifestyle (good nutrition with adequate calcium and vitamin D, and appropriate weight-bearing exercise). Follow-Up: Consider a repeat BMD and Vertebral Fracture Assessment (VFA) exam in 2 years or sooner if medically necessary, to reassess this patient's status. Reported by: GEOVANY BARBOZA M.D. on 05/13/2023 1:15:00 PM.
== END ==
LOC: RAD 12:39
PROVIDERS: PCP Family Medicine; Referring Provider Family Medicine; Visit Provider Family Medicine
DX: M81.0 Age-related osteoporosis without current pathological fracture (principal)
CPT/HCPCS: 77080

== ENCOUNTER → 2024-03-18 12:56 | Outpatient (CLI) | payer OTHER, SELFPAY ==
[2021-08-03 16:27] VITALS: BMI 21.5
--- NOTE | 2024-03-18 12:58 | DI.MG.S_ITS ---
BILATERAL DIGITAL SCREENING MAMMOGRAM 3D/2D WITH CAD: 03/18/2024 CLINICAL: Routine screening. Comparison is made to exams dated: 05/29/2018 mammogram, 03/13/2007 mammogram, and 12/17/2005 mammogram - . There are scattered areas of fibroglandular density (category b / 25%-50% glandular tissue). Current study was also evaluated with a Computer Aided Detection (CAD) system. No significant masses, calcifications, or other findings are seen in either breast. There has been no significant interval change. IMPRESSION: NEGATIVE There is no mammographic evidence of malignancy. A 1 year screening mammogram is recommended. Based on the Tyrer Cuzick model (a risk assessment model) the patient's lifetime risk is 3.7% and her 10 year risk is 2.4%. According to the ACR, ACS, and NCCN guidelines, an annual breast MRI exam along with mammogram is recommended if the patient's lifetime risk is 20% or greater. This exam was interpreted at Station ID: [id number]. NOTE: For mammograms, a report in lay terms will be sent to the patient. Approximately 15% of breast malignancies will not be visualized mammographically. In the management of a palpable breast mass, a negative mammogram must not discourage biopsy of a clinically suspicious lesion. Electronically Signed By: Esperanza Camilo M.D., Ph.D. rainer/antonella:03/19/2024 09:43:35 letter sent: Normal Exam ACR BI-RADS Category 1: Negative
== END ==
PROVIDERS: PCP Family Medicine; Referring Provider Family Medicine; Visit Provider Family Medicine
DX: Z12.31 Encounter for screening mammogram for malignant neoplasm of breast (principal)
CPT/HCPCS: 77063; 77067

== ENCOUNTER → 2024-08-03 13:16 | Outpatient (CLI) | payer OTHER, SELFPAY ==
[2021-08-03 16:27] VITALS: BMI 21.5
== END ==
PROVIDERS: PCP Family Medicine; Referring Provider Family Medicine; Visit Provider Family Medicine
DX: J41.0 Simple chronic bronchitis (principal); R06.02 Shortness of breath; Z87.891 Personal history of nicotine dependence; R94.2 Abnormal results of pulmonary function studies
CPT/HCPCS: 94060; 94726; 94729

== ENCOUNTER → 2024-08-18 12:39 | Outpatient (CLI) | payer OTHER, SELFPAY ==
[2021-08-03 16:27] VITALS: BMI 21.5
--- NOTE | 2024-08-18 12:40 | DI.CT.S_ITS ---
PROCEDURE: CT LUNG LOW DOSE SCREENING INDICATIONS: previous smoker TECHNIQUE: Noncontrast 2.0-2.5 mm thick sections acquired from the pulmonary apices to the posterior costophrenic angles. 7 mm thick axial MIP, and 5 mm coronal and sagittal reformats were then acquired. For radiation dose reduction, the following was used: automated exposure control, adjustment of mA and/or kV according to patient size. COMPARISON: [facility], CT, CT ANGIO CHEST PE PROTOCOL, 08/03/2021, 14:21. FINDINGS: Image quality: Diagnostic. Lower Neck: No enlarged lymph nodes. Thyroid: No thyroid nodules which require sonographic follow up, per consensus guidelines. Axillae: No enlarged lymph nodes. Chest Wall: Unremarkable. Bones: No suspicious osseous lesion. Left 7th rib fracture. Callus formation. Lungs and Pleura: No pneumothorax or pleural effusions. The central airways are clear. Moderate emphysematous change. A few small pulmonary nodules or nodular opacities. For example: -Right upper lobe 0.4 cm, (3/91), new. -Right lower lobe 0.8 cm, (3/135), new. -Left lower lobe superior segment 0.3 cm, (3/96), new. Heart: Heart size is normal. Mild coronary artery calcifications. No pericardial effusion. Thoracic Vessels: The aorta and pulmonary arteries demonstrate normal size. Mediastinum and Roxanna: No enlarged lymph nodes. Esophagus: No wall thickening. No hiatal hernia. Upper Abdomen: Visualized upper abdomen solid organs and bowel loops appear normal. Small cyst in the liver is unchanged. IMPRESSION: Right lower lobe pulmonary nodule or nodular opacity measuring 0.8 cm. LUNG-RADS 4A; suspicious; recommend 3 month follow-up CT, or PET/CT. Clinically Significant Non-pulmonary Findings: None. Left 7th rib fracture. Dictated by: Vladimir Joel M.D. on 08/19/2024 at 21:56 Approved by: Vladimir Joel M.D. on 08/19/2024 at 22:04
== END ==
PROVIDERS: PCP Family Medicine; Referring Provider Family Medicine; Visit Provider Family Medicine
DX: R91.8 Other nonspecific abnormal finding of lung field (principal); S22.32XA Fracture of one rib, left side, initial encounter for closed fracture; Z12.2 Encounter for screening for malignant neoplasm of respiratory organs; Z87.891 Personal history of nicotine dependence
CPT/HCPCS: 71271

== ENCOUNTER → 2024-11-30 12:35 | Outpatient (CLI) | payer OTHER, SELFPAY ==
[2021-08-03 16:27] VITALS: BMI 21.5
--- NOTE | 2024-11-30 12:37 | DI.CT.S_ITS ---
PROCEDURE: CT CHEST WO CON INDICATIONS: fu 8mm RLL nodule TECHNIQUE: Noncontrast 2.0-2.5 mm thick sections acquired from the pulmonary apices to the posterior costophrenic angles. 7 mm thick axial MIP and 5 mm coronal and sagittal reformats were then acquired. For radiation dose reduction, the following was used: automated exposure control, adjustment of mA and/or kV according to patient size. COMPARISON: [facility], CT, CT LUNG LOW DOSE SCREENING, 08/18/2024, 12:46. FINDINGS: Image quality: Diagnostic. Lower Neck: No enlarged lymph nodes. Thyroid: No thyroid nodules which require sonographic follow up, per consensus guidelines. Axillae: No enlarged lymph nodes. Chest Wall: Unremarkable. Bones: Degenerative changes of the spine. Old rib fractures. Lungs and Pleura: No pneumothorax or pleural effusions. Resolution of prior right lower lobe nodule. Resolution of prior right upper lobe nodule. Redemonstration of moderate emphysematous changes. Scattered tiny punctate pulmonary micro nodules are stable. Heart: Heart size is normal. No pericardial effusion. Thoracic Vessels: The aorta and pulmonary arteries demonstrate normal size. Atherosclerotic vascular calcifications. Mediastinum and Roxanna: No enlarged lymph nodes. Esophagus: No wall thickening. No hiatal hernia. Upper Abdomen: Stable left adrenal nodule measuring approximately 1.4 centimeters. IMPRESSION: 1. Resolution of prior pulmonary nodules. Recommend return to lung cancer screening. 2. Stable indeterminate left adrenal nodule measuring 1.4 centimeters. Fleischner Society criteria for SOLID lung nodule followup. Nodule size (mm)Low-risk patientHigh-risk patient<6 (single or multiple)No routine followup.Optional CT at 12 months. 6-8 (single or multiple)CT at 6-12 months, then optional CT at 18-24 mo.CT at 6-12 months, then CT at 18-24 months. >8 (single)CT at 3 months, PET-CT, or biopsy. Same as for low-risk pts. >8 (multiple)CT at 3-6 months, then optional CT at 18-24 mo.CT at 3-6 months, then CT at 18-24 months. Fleischner Society criteria for SUB-SOLID lung nodule followup. Solitary pure ground-glass nodules<6 mm (ground glass or part solid)No followup needed. 6 mm or larger (ground glass)CT at 6-12 months to confirm persistence, then CT every 2 years until 5 years.6 mm or larger (part solid)CT at 3-6 months to confirm persistence, then annual CT until 5 years if unchanged and solid component remains <6 mm. Multiple sub-solid nodules<6 mmCT at 3-6 months, then CT consider at 2 & 4 years for high risk patients. [address] at 3-6 months. Subsequent management based on most suspicious lesions. Recommendations do not apply to lung cancer screening, patients with immunosuppression, or patients with known primary cancer. Dictated by: Yaya Araya M.D. on 12/01/2024 at 10:51 Approved by: Yaya Araya M.D. on 12/01/2024 at 10:57
== END ==
PROVIDERS: PCP Family Medicine; Referring Provider Family Medicine; Visit Provider Family Medicine
DX: R91.1 Solitary pulmonary nodule (principal); R91.8 Other nonspecific abnormal finding of lung field; D44.12 Neoplasm of uncertain behavior of left adrenal gland; I70.90 Unspecified atherosclerosis
CPT/HCPCS: 71250